=== PATIENT | female | born 1995 | race Caucasian/White ===

== ENCOUNTER 2017-06-22 08:42 | Emergency (ER) | payer OTHER ==
[~2017-06-22] VITALS: Ht 165.1 cm; Wt 95.3 kg
--- NOTE | 2017-06-22 08:47 | ED GI/GU/ABDOMINAL COMPLAINT ---
History of Present Illness General Chief Complaint: Abdominal Pain/Flank Pain Stated Complaint: abd pain Source: patient Exam Limitations: no limitations Vital Signs & Intake/Output Vital Signs & Intake/Output Vital Signs Date Time Temp Pulse Resp B/P B/P Pulse O2 O2 Flow FiO2 Mean Ox Delivery Rate 06/22 1057 98.6 72 20 118/69 99 Room Air 06/22 1033 98.1 06/22 0847 98.1 88 20 112/71 99 Room Air Allergies Coded Allergies: No Known Allergies (06/22/17) Reconcile Medications Ketorolac Tromethamine 10 MG TABLET 1 TAB PO TID PRN PAIN Ketorolac Tromethamine 10 MG TABLET 1 TAB PO TID PRN PAIN Oxycodone HCl/Acetaminophen (Percocet 5-325 MG Tablet) 5 MG-325 MG TABLET 1 TAB PO TID PRN PAIN Triage Nurses Notes Reviewed? yes (F) ? N Is pt currently ? No Onset: Gradual Duration: constant Timing: single episode today Quality/Severity: cramping, severe Severity Numbers: 7 Activities at Onset: none HPI: Patient is a 22-year-old female with an unremarkable past medical history presents emergency room with concerns of a 2 day history of menstruation however 1 day history of worsening right lower quadrant and pelvic pain. Patient has taken ibuprofen with no change in symptoms. Denies any fever chills nausea vomiting dysuria hematuria. Last bowel movement was within last 24 hours no blood no melena noted. Patient can tolerate by mouth with no change in symptoms. Patient is having "normal bleeding" compared to her normal menstrual cycle currently. Past History Travel History Traveled to [place] past 21 day No Medical History Any Pertinent Medical History? none Neurological: NONE EENT: NONE Cardiovascular: NONE Respiratory: NONE Gastrointestinal: NONE Hepatic: NONE Renal: NONE Musculoskeletal: NONE Psychiatric: NONE Endocrine: NONE Surgical History Surgical History: non-contributory Psychosocial History What is your primary language Kenyan Tobacco Use: Never used ETOH Use: occasional use Illicit Drug Use: denies illicit drug use Family History Hx Contributory? No Review of Systems Review of Systems Constitutional: Reports: no symptoms. EENTM: Reports: no symptoms. Respiratory: Reports: no symptoms. Cardiovascular: Reports: no symptoms. GI: Reports: see HPI, abdominal pain. Genitourinary: Reports: see HPI. Musculoskeletal: Reports: no symptoms. Skin: Reports: no symptoms. Neurological/Psychological: Reports: no symptoms. Hematologic/Endocrine: Reports: no symptoms. Immunologic/Allergic: Reports: no symptoms. All Other Systems: Reviewed and Negative Physical Exam Physical Exam General Appearance: mild distress Head: atraumatic Eyes: Bilateral: normal appearance. Ears, Nose, Throat, Mouth: moist mucous membrane Neck: normal inspection Respiratory: no respiratory distress Cardiovascular: regular rate/rhythm Gastrointestinal: normal bowel sounds, soft, MILD RLQ/PELVIC PAIN NO REBOUND TENDERNESS/NO PERITONEAL PAIN NO RUQ PAIN Back: normal inspection Neurologic/Psych: no motor/sensory deficits, awake Skin: intact, normal color, warm/dry Core Measures ACS in differential dx? No Sepsis Present: No Sepsis Focused Exam Completed? No Progress Differential Diagnosis: appendicitis, biliary colic, bowel obstruction, cholecystitis, diverticulitis, ectopic , endometritis, esophageal varices, gastritis, hepatitis, hernia, hemorrhoids, ischemic bowel, inflamm bowel dis, intrauterine , kidney stone, ovarian cyst, ovarian torsion, pancreatitis, PID/cervicitis, peptic ulcer, PUD/GERD, perforated viscous, SBO, threatened AB, UTI/pyelo Plan of Care: Orders Procedure Date/time Status Add-on Test (ER Only) 06/22 0947 Active HUMAN BETA HCG SCREEN 06/22 09 Complete C-REACTIVE PROTEIN 06/22 0852 Complete COMPREHENSIVE METABOLIC PANEL 06/22 0852 Complete CBC WITHOUT DIFFERENTIAL 06/22 0852 Complete URINE 06/22 0847 Complete URINALYSIS 06/22 0847 Complete Current Medications Sig/Joshua Start time Last Medication Dose Stop Time Status Admin Oxycodone/ 1 TAB ONCE ONE 06/22 1230 CAN Acetaminophen 06/22 1231 (Percocet) Laboratory Tests 06/22/17 1027: Urine Color YEL, Urine Clarity CLEAR, Urine pH 6.0, Ur Specific [place] <= 1.005 , Urine Protein NEG, Urine Ketones NEG, Urine Nitrite NEG, Urine Bilirubin NEG, Urine Urobilinogen 0.2, Ur Leukocyte Esterase NEG, Ur Microscopic SEDIMENT EXAMINED, Urine RBC 1-3, Ur Epithelial Cells FEW, Urine Hemoglobin MOD H, Urine Glucose NEG, Urine Test NEGATIVE 06/22/17 0910: Anion Gap 8, Estimated GFR > 60, BUN/Creatinine Ratio 18.3, Glucose 98, Calcium 8.5, Total Bilirubin 0.6, AST 28, ALT 57 H, Alkaline Phosphatase 74, C-Reactive Prot, Quant 2.4 H, Total Protein 6.5, Albumin 3.7, Globulin 2.8, Albumin/ Globulin Ratio 1.3, Total Beta HCG NEGATIVE, CBC w Diff NO MAN DIFF REQ, RBC 4.38, MCV 87.6, MCH 29.1, MCHC 33.2, RDW 13.9, MPV 8.6, Gran % 65.3, Lymphocytes % 25.3, Monocytes % 6.8, Eosinophils % 2.0, Basophils % 0.6, Absolute Granulocytes 4.9, Absolute Lymphocytes 1.9, Absolute Monocytes 0.5, Absolute Eosinophils 0.2, Absolute Basophils 0 06/22/17 0901: C-Reactive Prot, Quant Cancelled Patient is afebrile nontoxic-appearing Patient was given Toradol with mild improvement of symptoms in which she was given Tylenol, patient did DRIVE to emergency room 1105 I reviewed all blood work with patient unremarkable findings ultrasound currently pending Ultrasounds were unremarkable for ovarian torsion or cyst Patient still was upset that I could not find a reason of why she was having abdominal pain which due to history of present illness and exam findings or suspicion of menstrual pain however however she states that "IT IS something different" patient was offered Percocet medications however stated that she wanted take this at home BECAUSE SHE DROVE HERE and was offered CT scan imaging DECLINES it and was offered a exam AND DECLINED it while in the emergency room. Upon discharge when prior to arrival patient was able tolerate by mouth patient was afebrile no leukocytosis Patient was strongly advised to return to emergency room if symptoms worsen or she develops fevers nausea or worsening pain and she will comply. 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 Radiology Impression: no acute abnormality Initial ED EKG: none Comments: PATIENT: GISSELL DUARTE PRESENT AGE: 22 PATIENT ACCOUNT NO: [id number] : 94 LOCATION: [facility] ORDERING PHYSICIAN: Rashi PISANO SERVICE DATE: 06/22/17 EXAM TYPE: US - US-LIMITED ABDOMEN; US-PELVIC MASS DIAG EXAMINATION: ULTRASOUND OF THE PELVIS RIGHT LOWER QUADRANT ULTRASOUND CLINICAL INFORMATION: Right lower quadrant pelvic pain. Evaluate appendix and ovary. COMPARISON: None TECHNIQUE: Transabdominal pelvic ultrasound. A transvaginal study was not performed as per the patient's wishes. Graded compression ultrasound of the right lower quadrant was also performed with real-time assessment by the reading radiologist. FINDINGS: Pelvic ultrasound: Uterus: The uterus is anteverted and normal in size and appearance, measuring 7.8 x 3.9 x 4.8 cm. The endometrial stripe thickness is normal, measuring up to 0.5 cm cm in thickness. No focal myometrial mass is seen. No endometrial free fluid is seen. The cervical length is normal measuring 2.0 cm. Ovaries: The ovaries bilaterally are visualized and appear grossly unremarkable, with the right ovary measuring 2.4 x 2.9 x 2.7 cm (10.1 mL volume) and the left ovary measuring 2.4 x 2.5 x 2.8 cm (8.8 mL volume). With color Doppler imaging, normal arterial and venous flow in both ovaries is seen. Other: No adnexal mass or free fluid collection seen. Right lower quadrant ultrasound: The appendix is not demonstrated due to overlying gas and stool. No inflammatory changes are identified in the right lower quadrant. There is no free fluid. IMPRESSION: 1. Unremarkable pelvic ultrasound. The ovaries bilaterally demonstrate normal arterial and venous flow and appear grossly unremarkable on transabdominal imaging. Ovarian parenchymal detail is low, but the patient deferred a transvaginal ultrasound assessment. 2. Evaluation of the appendix is non-diagnostic due to overlying gas and stool. No inflammatory changes identified in the right lower quadrant. Further workup should proceed based on degree of clinical concern and may include a CT scan of the abdomen and pelvis with contrast if clinically appropriate. DICTATED BY: Varinder ALARCON,Marilyn Turner DATE/TIME DICTATED:06/22/171006 CHEMISTRY MANAGER:YIN DATE/TIME TRANSCRIBED:06/22/171006 CONFIDENTIAL, DO NOT COPY WITHOUT APPROPRIATE AUTHOR Departure Departure Disposition: HOME OR SELF CARE Condition: Stable Clinical Impression Primary Impression: Abdominal pain Secondary Impressions: Menorrhagia Referrals: Marco ALARCON,Josephine Cardenas Additional Instructions: As discussed begin the prescription of Toradol for pain, and Percocet for breakthrough pain, prescriptions waiting at [facility]. Tomorrow please follow-up with an established ED MANAGER Dr. Lara and YOU will receive a phone call from [facility] practice to establish a doctor. If symptoms worsen or if YOU develop a new concerning symptom return to the emergency room. Departure Forms: Customer Survey General Discharge Information Prescriptions: Current Visit Scripts Ketorolac Tromethamine 1 TAB PO TID PRN PAIN #15 TAB Ketorolac Tromethamine 1 TAB PO TID PRN PAIN #15 TAB Oxycodone HCl/Acetaminophen (Percocet 5-325 MG Tablet) 1 TAB PO TID PRN PAIN #10 TAB
[2017-06-22 09:17] LABS: ABSOLUTE BASOPHIL COUNT 0 /CUMM (0.0-0.2); ABSOLUTE EOSINOPHIL COUNT 0.2 /CUMM (0.0-0.7); ABSOLUTE GRANULOCYTE CT 4.9 /CUMM (1.4-6.5); ABSOLUTE LYMPH COUNT 1.9 /CUMM (1.2-3.4); ABSOLUTE MONOCYTE COUNT 0.5 /CUMM (0.10-0.60); BASOPHIL % 0.6 % (0.0-2.0); GRANULOCYTE % 65.3 % (42.2-75.2); HEMATOCRIT 38.4 % (37-47); MEAN CORPUSCULAR HGB 29.1 PG (27.0-31.0); MEAN CORPUSCULAR HGB CONC 33.2 G/DL (33.0-37.0); MEAN CORPUSCULAR VOLUME 87.6 FL (81.0-99.0); MEAN PLATELET VOLUME 8.6 FL (7.4-10.4); PLATELET COUNT 307 /CUMM (130-400); RBC DISTRIBUTION WIDTH 13.9 % (11.5-14.5); RED BLOOD CELL CT 4.38 /CUMM (4.20-5.40); WHITE BLOOD CELL COUNT 7.5 /CUMM (4.8-10.8)
[2017-06-22] MEDS ORDERED: KETOROLAC TROME10 M1 PO ×2 (09:51→12:45)
[2017-06-22 10:57] VITALS: BP 118/69
--- NOTE | 2017-06-22 12:33 | ULTRASOUND REPORT ---
EXAMINATION: ULTRASOUND OF THE PELVIS RIGHT LOWER QUADRANT ULTRASOUND CLINICAL INFORMATION: Right lower quadrant pelvic pain. Evaluate appendix and ovary. COMPARISON: None TECHNIQUE: Transabdominal pelvic ultrasound. A transvaginal study was not performed as per the patient's wishes. Graded compression ultrasound of the right lower quadrant was also performed with real-time assessment by the reading radiologist. FINDINGS: Pelvic ultrasound: Uterus: The uterus is anteverted and normal in size and appearance, measuring 7.8 x 3.9 x 4.8 cm. The endometrial stripe thickness is normal, measuring up to 0.5 cm cm in thickness. No focal myometrial mass is seen. No endometrial free fluid is seen. The cervical length is normal measuring 2.0 cm. Ovaries: The ovaries bilaterally are visualized and appear grossly unremarkable, with the right ovary measuring 2.4 x 2.9 x 2.7 cm (10.1 mL volume) and the left ovary measuring 2.4 x 2.5 x 2.8 cm (8.8 mL volume). With color Doppler imaging, normal arterial and venous flow in both ovaries is seen. Other: No adnexal mass or free fluid collection seen. Right lower quadrant ultrasound: The appendix is not demonstrated due to overlying gas and stool. No inflammatory changes are identified in the right lower quadrant. There is no free fluid. IMPRESSION: 1. Unremarkable pelvic ultrasound. The ovaries bilaterally demonstrate normal arterial and venous flow and appear grossly unremarkable on transabdominal imaging. Ovarian parenchymal detail is low, but the patient deferred a transvaginal ultrasound assessment. 2. Evaluation of the appendix is non-diagnostic due to overlying gas and stool. No inflammatory changes identified in the right lower quadrant. Further workup should proceed based on degree of clinical concern and may include a CT scan of the abdomen and pelvis with contrast if clinically appropriate.
[2017-06-22] MEDS ORDERED: PERCOCET 5-3251 EACH PO (12:45)
== END 2017-06-22 13:34 ==
LOC: ERH 08:42
PROVIDERS: Physician Assistant
DX: N92.0 Excessive and frequent menstruation with regular cycle (principal)
CPT/HCPCS: 81001; 81025; 96372; J1885